=== PATIENT | male | born 2000 | race Caucasian/White ===

== ENCOUNTER 2024-12-19 16:26 | Emergency (ER) | payer BC, SELFPAY ==
--- OUTSIDE RECORDS SUMMARY | 2024-12-19 16:28 | XMS_ITS | Clinical Summary ---
Author Organization [facility] Address [facility] [facility] [place] [address] Care Team Providers Care Surgical Dental Assistant Name Role Phone Unavailable Primary Care Provider Unavailabl e Source Comments [facility],non-owned Affiliates and Associated Physician Practices is amultiple site organization consisting of ambulatory clinics and hospital sitesin [place], [place], [place] and [place]. This disclosure is being madepursuant to the Care Everywhere program and may not contain all information available regarding this patient. Last updated 18.[employer] [facility] Allergies No known active allergies Medications * This document contains information received from the source organization and may not represent a complete record from that organization. * Be aware that medications may not be up to date on this document. Alwaysverify current medications with the patient. risperiDONE (RisperDAL) 1 MG tablet Take 1 (one) tablet by mouth 2 times daily Tale one tablet by mouth every day in the morning and 1/2 tablet nightly along with 3 mg. 09/04/2022 Active atomoxetine (Strattera) 60 MG capsule Take 1 (one) capsule by mouth once daily 07/27/2021 Active methylphenidate ER (Concerta) 54 MG tablet Take 1 (one) tablet by mouth once daily 10/10/2022 Active busPIRone (Buspar) 15 MG tablet Take 7.5 mg by mouth 2 times daily as needed Take 1/2 tablet or full tablet every 12 as needed for anxiety symptoms. 10/14/2022 Active Social History Tobacco Use Types Packs/Day Years Used Date Smoking Tobacco: Never Smokeless Tobacco: Never Tobacco Cessation:Counseling Given: No Alcohol Use Standard Drinks/Week Comments Never 0 (1 standard drink = 0.6 oz pur e alcohol) AUDIT-C Answer Date Recorded Q1: How often do you have a drink containing alcohol? Never 10/16/2022 Q2: How many drinks containi ng alcohol do you have on a typical day when you are drinking? Patient does not drink Q3: How often do you have si x or more drinks on one occasion? Never 10/16/2022 Sex and Gender Information Value Date Recorded Sex Assigned at Not on file Legal Sex Male 5:42 AM BOX ORDER PERSON Gender Identity Not on file Sexual Orientation Not on file Last Filed Vital Signs Vital Sign Reading Time Taken Comments Blood Pressure 135/82 10/16/2022 10:25 AM BOX ORDER PERSON Pulse 98 10/16/2022 10:25 AM BOX ORDER PERSON Temperature 36.8 C (98.2 F) 10/16/2022 10:25 AM BOX ORDER PERSON Respiratory Rate 18 10/16/2022 10:25 AM BOX ORDER PERSON Oxygen Saturation 99% 10/16/2022 10:25 AM BOX ORDER PERSON Inhaled Oxygen Concentration - - Weight 92.5 kg (204 lb) 10/16/2022 10:25 AM BOX ORDER PERSON Height 182.9 cm (6') 10/16/2022 10:25 AM BOX ORDER PERSON Body Mass Index 27.67 10/16/2022 10:25 AM BOX ORDER PERSON Plan of Treatment Health Maintenance Due Date Last Done Comments HIV SCREENING 2016 HPV VACCINE (1 - Male 3-dose series) 2016 MENINGOCOCCAL (Group B) VACCINE SHARED DECISION-MAKING (1 of 2 - Standard) 2017 HEPATITIS C SCREENING 11/12/2019 DTAP/TDAP/TD VACCINES (1 - Tdap) 2020 HEPATITIS B VACCINE (1 of 3 - 19+ 3-dose series) 2020 COVID-19 VACCINE (2 - season) 2024 12/21/2020 DEPRESSION SCREENING 09/08/2024 INFLUENZA VACCINE (Season Ended) 2025 06/17/2020, 09/02/2019, 06/19/2016, Additional history exists ZOSTER VACCINE (1 of 2) 11/17/2051 HIB VACCINE Aged Out No longer eligi ble based on patient's age to complete this topic MENINGOCOCCAL GROUPS A/C/Y/W VACCINE Aged Out No longer eligible based on patient's age to complete this topic PNEUMOCOCCAL VACCINE Aged Out No long er eligible based on patient's age to complete this topic Insurance [facility] Address: [facility] [id number] [place] [address]
--- OUTSIDE RECORDS SUMMARY | 2024-12-19 16:28 | XMS_ITS | Encounter Summary ---
Author Organization [facility] Address [address] [place] [id number] Care Team Providers Care Compo Caster Name Role Phone Lee Harding MD Primary Care Provide r Encounter Details Date Type Department Care Team (Late st Contact Info) Description 10/16/2018 Abstract HEALTH INFO [facility] Scanned, Documents Social History Tobacco Use Types Packs/Day Years Used Date Smoking Tobacco: Never Smokeless Tobacco: Never Sex and Gender Information Value Date Recorded Sex Assigned at Male 2024 9:56 AM CDT Legal Sex Male 11:14 PM CDT Gender Identity Not on file Sexual Orientation Not on file documented as of this encounter Plan of Treatment Not on file documented as of this encounter Visit Diagnoses Not on filedocumented in this encounter Additional Health Concerns Infection Onset Date Last Indicated Resolved Time COVID-19 Rule Out 04/30/2022 04/30/2022 05/07/2022 12:32 AM CDT documented as of this encounter Care Teams Compo Caster Relationship Specialty [place] [address] [place] [address] PCP - General INTERNAL MEDICINE 10/14/18 documented as of this encounter
--- OUTSIDE RECORDS SUMMARY | 2024-12-19 16:28 | XMS_ITS | Clinical Summary ---
Author Organization [facility] Address [facility] [place] [address] Care Team Providers Care Machine Bander And Cellophaner Helper Name Role Phone Lee Harding MD Primary Care Provide r Allergies No known active allergies Medications polyethylene glycol packet Take 240 mLs (17 g total) by mouth daily. Dissolve powder in 240 mL water Active magnesium oxide 250 MG tablet Take 1 tablet (250 mg total) by mouth daily. Active sertraline (ZOLOFT) 100 MG tablet Take 1 tablet (100 mg total) by mouth daily. 3 Active risperiDONE (RISPERDAL) 4 MG tablet Take 1 tablet (4 mg total) by mouth nightly at bedtime. at bedtime. Active Multiple Vitamin (MULTIVITAMIN ADULT OR) Active atomoxetine (STRATTERA) 60 MG capsuleIndication s:Attention-defic it hyperactivity disorder, combined type TAKE 1 CAPSULE BY MOUTH EVERY DAY 90 capsule 3 4 Active risperiDONE (RISPERDAL) 3 MG tablet Take 1 tablet (3 mg total) by mouth every morning. 5 Active Methylphenidate HCl (METHYLPHENIDATE ER) 54 MG TABLET SR 24 HR 24 hr tabletIndications :ADHD (attention deficit hyperactivity disorder), combined type Take 54 mg by mouth daily. 30 tablet 5 Active Methylphenidate HCl (METHYLPHENIDATE ER) 54 MG TABLET SR 24 HR 24 hr tabletIndications :ADHD (attention deficit hyperactivity disorder), combined type Take 54 mg by mouth daily. 30 tablet 5 11/23/19 25 Discontin ued(Reord er) Active Problems Problem Noted Date Diagnosed Date Allergic conjunctivitis of both eyes 04/27/2021 Psychiatric follow-up 04/18/2019 Overview (01/09/2021): Last Assessment & Plan: Plan/Interventions following visit on 04/14/2019: #Medications: - Continue Strattera 60 mg dialy - Continue Effexor XR 225 mg daily - Continue Risperidone 1 mg in the AM and 2 mg in the PM - Start Concerta 27 mg daily R/B/SE discussed with mom and she provided IC #Psychotherapy: During the school year, he is involved in social skills training. Encouraged continued involvement #Psychosocial: Mom is very involved. Recommended efforts to initiate guardianship process #School: About to start in April. He will be able to receive educational services until age 22. Recommended mom contacting us for any difficulties with that. #Medical/Lab: With continued weight gain and increase in BP, there's concern for development of Metabolic Syndrome. Discussed with mom obtaining labs during this next visit (HbA1c/Lipid Panel). #Risk Assessment: Reji is at baseline risk for harm to self or others given hx of ASD, ADHD, and hx of aggression. At this time, he is suicidal, homicidal, or psychotic and remains appropriate for OP care. #Follow-up: In 2 months. Mom to call earlier for any concerns. Anxiety disorder 02/25/2018 Overview (09/17/2019): Last Assessment & Plan: Reji continues to have reasonable control over anxiety. Still gets frightful and fearful of tornados occasionally, almost as if a specific phobia. High levels of activation and skin picking and irritability and difficulties concentrating seen in the past have remained decreased. No changes in medication thus necessary. -CONTINUE Effexor 225mg PO daily The risks, benefits, alternatives, and side effects were discussed with the patient and his guardian and the patient assented and guardian consented to continued treatment. Tourette's disease 02/25/2018 Overview (09/17/2019): Last Assessment & Plan: Reji has continued to have a decrease in the frequency and intensity of his motor tics, though still occasionally will have motor tic of head when upset with brother or overly stimulated/excited with video games. None observed on exam today. Since shifting dosing of Risperidone (TDD remained at 3mg), he has been more alert, less drowsy in class. I am alarmed with his continued weight gain, which we discussed today (11 lbs in past 2+ months). Lipids (LDL) elevated too (A1c unavailable at this time). Discussed first line is increased exercise and improved diet, future considerations of statin and/or metformin (depending on A1c). -CONTINUE Risperidone 1mg qAM, 2mg qHS The risks, benefits, alternatives, and side effects were discussed with the patient and his guardian and the patient assented and guardian consented to continued treatment. ADHD (attention deficit hype ractivity disorder), combined type 04/18/2016 Overview (09/17/2019): Last Assessment & Plan: Focus and attention in class have actually improved since lowering AM Risperidone dose. Continues to function at his baseline. He still has low frustration tolerance and easily angered, but this seems more consistent with his rigidity as part of his ASD, less likely emotional impulsivity due to ADHD. Will continue current regimen. -CONTINUE Atomoxetine 60mg PO daily The risks, benefits, alternatives, and side effects were discussed with the patient and his guardian and the patient assented and guardian consented to continued treatment. Autism spectrum disorder ([facility]) 04/18/2016 Overview (09/17/2019): Last Assessment & Plan: No change in diagnostic formulation. Continue life skills training in school and social skills groups to improve adaptive functioning. -CONTINUE Risperidone 1mg PO qAM, 2mg PO qHS as above -CONTINUE Social Skills Group weekly Dysphagia 02/15/2015 Overview (10/12/2018): Dysphagia, unspecified Other acne 01/16/2015 Overview (10/12/2018): Other acne Constipation 05/02/2014 Overview (10/12/2018): Constipation, unspecified Dyspepsia and other specifie d disorders of function of stomach 05/02/2014 Overview (10/12/2018): Dyspepsia and other specified disorders of function of stomach Resolved Problems Problem Noted Date Diagnosed Date Resolved Date Active autistic disorder ([facility]) 04/16/2013 06/16/2023 Overview (10/12/2018): Infantile autism, current or active state Encounters Date Type Department Care Team Description 11/22/[address] [facility] [address] [place] [phone] Lee Harding MD Medication 2024 4:20 PM CDT Office Visit [facility] [address] [place] [phone] Lee Harding MD Swallowing Difficulty (Swallowing difficulty x 2 weeks) 2024 Travel 10/22/[address] [facility] [address] [place] [phone] Lee Harding MD Medication (CONCERTA) 09/23/[address] [facility] [address] [place] [phone] Lee Harding MD Medication (CONCERTA) from Last 3 Months Immunizations Immunization Administration Dates Next Due Dtap 03/28/2007, 3,05/31/2002,03/26,02/05/2002 HPV4 (Gardasil) 10/28/2016,06/19/2016,04/17/2016 Hepatitis A 03/28/2007 Hepatitis B 11/19/2002,02/05/2002,2001 Hib Vaccine, Prp-Omp 11/19/2002,03/26/2002,02/05 Influenza Adult (Generic) 06/17/2020,,06/19/2016,06/30,07/20/2012 MMR 03/28/2007,02/15/2003 Menactra 04/17/2016 Meningococcal (Menactra) 10/16/2018 PFIZER COVID-19 (ORIGINAL FO RMULATION, PURPLE CAP) mRNA, LNP-S, PF, 30 MCG/0.3 ML DOSE 12/21/2020 Pneumococcal (Prevnar 13) 05/17/2004,04/15/2002, 03/05/2002 Polio Ipv (Generic) 03/28/2007, 3,03/26/2002,02/05 Tdap (Generic) 03/22/2013 Varicella Vaccine 03/28/2007,11/19/2002 Family History Medical History Relation Comments No Known Problems Father Mental Health Maternal Aunt No Known Problems Mother Mental Health Paternal Aunt Early Paternal Grandmother Relation Status Comments Father Alive Maternal Aunt Mother Alive Paternal Aunt Paternal Grandmother Social History Tobacco Use Types Packs/Day Years Used Date Smoking Tobacco: Never Passive Smoke Exposure: Never Smokeless Tobacco: Never Tobacco Cessation:Counseling Given: Not Answered Alcohol Use Standard Drinks/Week Comments Never 0 (1 standard drink = 0.6 oz pur e alcohol) PHQ-2 Answer Date Recorded Patient Health Questionnaire-2 Score 0 06/15/2024 Sex and Gender Information Value Date Recorded Sex Assigned at Male 2024 9:56 AM CDT Legal Sex Male 11:14 PM CDT Gender Identity Not on file Sexual Orientation Not on file Last Filed Vital Signs Vital Sign Reading Time Taken Comments Blood Pressure 110/64 2024 4:25 PM CDT Pulse 76 2024 4:25 PM CDT Temperature 36.7 C (98.1 F) 2024 4:25 PM CDT Respiratory Rate 20 2024 4:25 PM CDT Oxygen Saturation 97% 2024 4:25 PM CDT Inhaled Oxygen Concentration - - Weight 89 kg (196 lb 3.2 oz) 2024 4:25 PM CDT Height 182.9 cm (6') 06/12/2024 9:56 AM CDT Body Mass Index 26.61 06/12/2024 9:56 AM CDT Plan of Treatment Health Maintenance Due Date Last Done Comments Meningococcal B Vaccine (1 of 2 - Standard) 2017 Hepatitis C 11/17/2019 DTaP, Tdap and Td Vaccines (7 - Td or Tdap) 03/22/2023 03/22/2013, 03/28/2007, 02/15/2003, Additional history exists COVID-19 Vaccine ( - season) 2024 11/26/2021, 01/12/2021, 12/21/2020 PHQ-2 (Physician [place]) 09/08/2024 06/15/2024 Annual Physical 06/15/2025 06/15/2024, 10/2022, 01/09/2021, Additional history exists Hepatitis B Vaccines Completed 11/19/2002, 02/05/2002, 2001 Pneumococcal Vaccine: Pediatrics (0 to 5 Years) and At-Risk Patients (6 to 49 Years) Completed 05/17/2004, 04/15/2002, 03/05/2002 HPV Vaccines Completed 10/28/2016, 06/08, 04/17/2016 Meningococcal Vaccine Completed 10/16/2018, 016 RSV Immunizations Under 20 Months Aged Out No longer eligible based on patient's age to complete this topic Insurance [facility] Care Teams Machine Bander And Cellophaner Helper Relationship Specialty [place] [address] [place] [address] PCP - General INTERNAL MEDICINE 10/14/18
[2024-12-19 17:02] VITALS: BP 134/66; PULSE 76; RESP 18; TEMP 36.9; O2SAT 98
--- NOTE | 2024-12-19 17:28 | ED.EAR ---
HPI - Ear Problem General Chief complaint: Ear Stated complaint: left ear pain/drainage/popping Time Seen by Provider: 12/19/24 17:19 Source: patient, family (Mother) and RN notes reviewed Mode of arrival: ambulatory Limitations: no limitations History of Present Illness HPI Narrative: Mother presents patient today complaining of left ear pain and drainage. Patient felt a pop today in his left ear followed by blood-tinged purulent discharge and muffled hearing. He has been congested since yesterday but no other cold symptoms. He is currently pain-free. He has had Zyrtec, Tylenol, and Flonase since yesterday for cold symptoms. Related Data Home Medications ?Medication ?Instructions ?Recorded ?Confirmed ?Last Taken ?Type atomoxetine 60 mg capsule mg PO 12/19/24 Unknown History methylphenidate HCl 54 mg mg PO 12/19/24 Unknown History tablet,extended release 24 hr risperidone 3 mg tablet mg 12/19/24 Unknown History risperidone 4 mg tablet mg 12/19/24 Unknown History sertraline 100 mg tablet mg 12/19/24 Unknown History Allergies Allergy/AdvReac Type Severity Reaction Status Date / Time No Known Allergies Allergy Verified 12/19/24 17:01 Review of Systems Review of Systems: CONSTITUTIONAL: Denies body aches, fever, chills, or sweats. EYES: Denies visual changes, redness, or discharge. ENT: Denies rhinorrhea, sore throat. + left ear drainage, muffling, nasal congestion CARDIOVASCULAR: Denies chest pain, palpitations, or edema. RESPIRATORY: Denies cough or dyspnea. GASTROINTESTINAL: Denies abdominal pain, nausea, vomiting, or diarrhea. GENITOURINARY: Denies dysuria or hematuria. SKIN: Denies rash, itching, or wounds. MUSCULOSKELETAL: Denies back pain, joint pain, or myalgia. NEUROLOGIC: Denies headache, numbness, tingling, or weakness. PSYCH: Denies depression or anxiety. [facility] Past Medical History Medical History (Updated 12/19/24 @ 18:22 by Lisa Pierce, BUSINESS SERVICES CLERK, ) Autism Comments At time of signature, I have reviewed and agree with nursing past medical, surgical, social and family history unless otherwise noted. Please see nursing chart for further information. There is no relevant family history pertinent to the presenting complaint Exam Narrative: GENERAL: Well-appearing, well-nourished, and in no acute distress. HEAD: Normocephalic, atraumatic. EYES: EOMI. No redness or drainage. Conjunctivae normal. ENT: Mucous membranes pink and moist. Nares congested. No rhinorrhea. Right TM normal. Left TM erythematous. Moderate amount of purulent blood-tinged discharge in the canal. Unable to visualize entire TM due to discharge. No movement or tragal tenderness. NECK: Normal AROM. CHEST: No respiratory distress. EXTREMITIES: Normal range of motion. No edema. SKIN: Warm, dry, no rash. Capillary refill normal. Normal skin turgor. NEURO: No focal deficits. Alert and oriented x3. Gait steady. PSYCH: Normal affect. No signs of depression or anxiety. Course Course Level of Care: Express Care Visit Vital Signs Vital signs: Vital Signs Temperature 98.5 F 12/19/24 17:02 Pulse Rate 76 12/19/24 17:02 Respiratory Rate 18 12/19/24 17:02 Blood Pressure 134/66 12/19/24 17:02 Pulse Oximetry 98 12/19/24 17:02 Oxygen Delivery Room Air 12/19/24 17:02 Temperature 98.5 F 12/19/24 17:02 Pulse Rate 76 12/19/24 17:02 Respiratory Rate 18 12/19/24 17:02 Blood Pressure 134/66 12/19/24 17:02 Pulse Oximetry 98 12/19/24 17:02 Oxygen Delivery Room Air 12/19/24 17:02 Review Medical Decision Making MDM Narrative Medical decision making narrative: Patient will be treated with amoxicillin for otitis media with rupture. Recommend following up with PCP in 2 weeks for a recheck of the ear drum as entirety of TM cannot be visualized today due to amount of drainage in the canal. Anticipatory guidance given. Differential Diagnosis Differential Diagnosis: Otitis media, otitis externa, ruptured TM, serous otitis, URI Vital Signs Vital Signs: Vital Signs Temperature 98.5 F 12/19/24 17:02 Pulse Rate 76 12/19/24 17:02 Respiratory Rate 18 12/19/24 17:02 Blood Pressure 134/66 12/19/24 17:02 Pulse Oximetry 98 12/19/24 17:02 Oxygen Delivery Room Air 12/19/24 17:02 Temperature 98.5 F 12/19/24 17:02 Pulse Rate 76 12/19/24 17:02 Respiratory Rate 18 12/19/24 17:02 Blood Pressure 134/66 12/19/24 17:02 Pulse Oximetry 98 12/19/24 17:02 Oxygen Delivery Room Air 12/19/24 17:02 Critical Care Time Critical Care Time Critical Care Time: No Discharge Plan Discharge Clinical Impression: Acute suppur left otitis media w/spontan rupture of tympanic membrane Qualifiers: Recurrence: non-recurrent Qualified Code(s): H66.012 - Acute suppurative otitis media with spontaneous rupture of ear drum, left ear Patient Disposition: Home Condition: Stable Instructions: Antibiotic Form, Ear Infection (ED) Additional Instructions: You have been diagnosed with an ear infection and ruptured eardrum. Please take the amoxicillin as prescribed until gone. Continue Tylenol or ibuprofen if needed for pain. Do not submerge your head in water such as pools, hot tubs, bathtubs, lakes, until you have confirmed that the hole has healed properly. Follow-up with your PCP in 2 weeks for recheck of your ear drum. Your blood pressure was elevated above 120/80 today at Urgent Care. This puts you above the threshold for follow up. Please schedule a followup visit with your personal physician as soon as possible, for further evaluation and treatment. Even blood pressure exceeding 120/80 may indicate pre-hypertension. Patient Language: Yoruba Prescriptions: New amoxicillin 875 mg tablet 875 mg PO Q12H 10 Days Qty: 20 0RF No Action risperidone 4 mg tablet sertraline 100 mg tablet methylphenidate HCl 54 mg tablet extended release 24hr PO risperidone 3 mg tablet atomoxetine 60 mg capsule PO Follow-up/Referrals: Mehdi,JAMIE Mera [Primary Care Provider] - Time of Disposition: 17:28
== END 2024-12-19 17:30 | disposition home or self-care (01) ==
PROVIDERS: Emergency Provider Nurse Practitioner; PCP Nurse Practitioner Family
DX: H66.012 Acute suppurative otitis media with spontaneous rupture of ear drum, left ear (principal); F84.0 Autistic disorder
CPT/HCPCS: 99203; G0463